=== PATIENT | female | born 1995 | race Caucasian/White ===

== ENCOUNTER 2020-06-19 13:33 | Outpatient (REF) | payer OTHER, SELFPAY | END 2020-06-19 13:34 | disposition home or self-care (01) | LOC: HO.LAB 13:33 | PROVIDERS: Visit Provider Internal Medicine | DX: Z20.828 Contact with and (suspected) exposure to other viral communicable diseases (principal) | CPT/HCPCS: C9803; U0003 ==

== ENCOUNTER 2023-08-22 08:36 | Outpatient (AMB) | payer OTHER, SELFPAY ==
--- NOTE | 2023-08-22 09:01 | A.OFFVIS_ITS ---
Intake Intake Visit Reasons: Low back pain [employer] Required: No Assessment & Plan Assessment & Plan (1) Lumbar radiculopathy: Code(s): M54.16 - Radiculopathy, lumbar region Plan Dear Nurys, Thank you for referring Mrs Olivera to our office today. This is a 28-year-old female who has had a 1 year history of pain in her left hip/buttock area radiating down into her lateral thigh, groin area, into her calf and at times the outer part of her foot. She will feel tingling into her foot as well. The symptoms came on all of a sudden without any specific provocative event. She has tried numerous rounds of conservative treatment including physical therapy, tramadol, gabapentin, ibuprofen, Tylenol. The symptoms are aggravated with sitting for prolonged periods of time or standing for prolonged periods of time. She got up some moves around she can make the pain go away but as soon as she gets back into any prolonged sitting or standing position the pain returns. It is always there throughout the day no matter what. She did try cortisone injection which seemed to only aggravate things. She saw someone at [facility] for evaluation and they told her lose weight. The interesting thing is she did undergo gastric sleeve surgery and lost 100 lb but it did not help any of this. She is frustrated and is interested in having a 2nd opinion about surgery. She has an MRI showing crowding of the lateral recess at L4-5 amongst other degenerative changes. PMH: History of , cholecystectomy, gastric sleeve, other than that she said she is healthy. She did have an issue with anemia 1 point but that issue resolved itself. No history of blood clots, bleeding disorders, heart attacks, strokes, pulmonary or kidney issues. Social hx: She does not smoke, drink or use any marijuana/recreational drugs Medications: Tramadol, gabapentin, ibuprofen and Tylenol Allergies: Erythromycin Physical exam: Intact gait, strength and reflex, BMI 38 Imaging review: Lumbar MRI done at [facility] in May 2023 shows mild disc degeneration at L3-4 and L4-5. At L4-5 there is crowding of the bilateral lateral recess due to a disc bulge and slightly overgrown facet joints. Impression: This is a 28-year-old female with a 1 year history of what sounds like an L5 radiculopathy going down into her buttock, thigh and outer calf with occasional tingling into the outer part of her foot. She has been through conservative treatment, including medications, cortisone injections, physical therapy and even lost 100 lb. She was turned down at [facility] for surgery because she was told she needed to lose even more weight. She is frustrated by the lack of progress in her quality of life. I reviewed her MRI, there is some crowding of the lateral recess due to a disc bulge and overgrown facet at this level of L4-5 which might explain her symptoms. I am going to review her imaging with Dr. Gonzalez and see if he would consider a left L4-5 hemil aminotomy and decompression. We did briefly discuss the procedure, risks, benefits and recovery etc.. I will call her back once I have a chance to review everything with him. Thank you for allowing us to care for your patient. The total time spent with this visit with this patient was 45 minutes reviewing history, physical exam, lumbar imaging review, and implementation of treatment plan or further diagnostic testing Kade Gonzalez MD,PhD [facility] Coding Level of Care Code New Pt Level 4 (92901) Diagnoses Lumbar radiculopathy M54.16
== END 2023-08-22 09:23 | disposition home or self-care (01) ==
PROVIDERS: PCP Registered Nurse; Referring Provider Physician Assistant; Visit Provider Physician Assistant
DX: M54.16 Radiculopathy, lumbar region (principal)
CPT/HCPCS: 99204

== ENCOUNTER → 2023-08-22 08:36 | Outpatient (BNVA) | payer OTHER, SELFPAY | PROVIDERS: PCP Registered Nurse; Referring Provider Physician Assistant; Visit Provider Physician Assistant | DX: M54.16 Radiculopathy, lumbar region (principal) | CPT/HCPCS: 99202 ==